=== PATIENT | male | born 2000 | race Caucasian/White ===

== ENCOUNTER 2021-03-02 03:53 | Emergency (ER) | payer OTHER ==
[2021-03-02 04:40] LABS: HEMOGLOBIN 16.2 gm/dl (14.0-17.5); RED BLOOD COUNT 5.6 M/UL (4.20-5.50)
[2021-03-02 04:57] LABS: BUN/CREATININE RATIO 22 (0-10)
== END 2021-03-02 05:47 | disposition home or self-care (01) ==
LOC: ER1 03:53
PROVIDERS: Family Medicine
DX: M79.602 Pain in left arm (principal); F17.200 Nicotine dependence, unspecified, uncomplicated
CPT/HCPCS: 73060; 80053; 85025; 85379; 99283

== ENCOUNTER 2021-04-07 15:56 | Emergency (ER) | payer OTHER ==
[2021-04-07 16:34] LABS: HEMOGLOBIN 16.4 gm/dl (14.0-17.5); RED BLOOD COUNT 5.71 M/UL (4.20-5.50); WHITE BLOOD COUNT 9.5 K/UL (4.5-11.0)
[2021-04-07 17:04] LABS: BUN/CREATININE RATIO 19 (0-10)
== END 2021-04-07 17:55 | disposition home or self-care (01) ==
LOC: ER1 15:56
PROVIDERS: Physician Assistant
DX: R07.9 Chest pain, unspecified (principal); F17.220 Nicotine dependence, chewing tobacco, uncomplicated; Z20.822 Contact with and (suspected) exposure to COVID-19
CPT/HCPCS: 71045; 80048; 84484; 85025; 93005; 99285; U0003